=== PATIENT | male | born 1975 | race African-American/Black ===

== ENCOUNTER 2020-08-08 08:52 | Day surgery (SDC) | payer BC ==
[2020-08-05 14:27] VITALS: BMI 38.0
[~2020-08-08 08:52] MED LIST: ACETAMINOPHEN TAB 500 MG TAB PO PRN; DEXAMETHASONE SOD PHOSPHATE 4 MG/ML 1 ML VIAL IV ONE; HEPARIN SODIUM,PORCINE/PF 5,000 UNIT/0.5 ML SYRINGE SQ PRN; HYDROmorphone 0.5 MG/0.5 ML SYRINGE IVP PRN; MIDAZOLAM 2 MG/2 ML VIAL IV PRN; ONDANSETRON 4 MG/2 ML VIAL IVP ONE; SCOPOLAMINE 1.5MG/72HR PATCH TRANSDERM ONE; metroNIDAZOLE-NS PMX 500 MG in SALINE 1 100ML.BAG IVPB PRN
--- NOTE | 2020-08-08 09:15 | P.GSHP ---
History of Present Illness H&P Date: 08/08/20 Chief Complaint: Pilonidal cyst 45-year-old male for the last 5-6 years has had complaints of intermittent pain and swelling and drainage at the upper aspect of his gluteal cleft. Over the last year or so symptoms have occurred every few weeks. No previous incision and drainage. No antibiotic use in the past. Patient has drainage from the same location each time. Past Medical History Additional Past Medical History / Comment(s): PILONIDAL CYST-RUPTURED YESTERDAY History of Any Multi-Drug Resistant Organisms: None Reported Past Surgical History: Orthopedic Surgery Additional Past Surgical History / Comment(s): PINS IN BILAT HIPS AT AGE 16 Past Anesthesia/Blood Transfusion Reactions: No Reported Reaction Smoking Status: Current every day smoker - Past Family History Mother Family Medical History: No Reported History Medications and Allergies Home Medications Medication Instructions Recorded Confirmed Type No Known Home Medications 08/05/20 08/05/20 History Allergies Allergy/AdvReac Type Severity Reaction Status Date / Time No Known Allergies Allergy Verified 08/05/20 14:22 Surgical - Exam Physical exam: General: Well-developed, well-nourished HEENT: Normocephalic, sclerae nonicteric Abdomen: Nontender, nondistended Extremities: No edema, pilonidal region with a few small sinus openings, single open wound present at the superior aspect of the gluteal cleft measuring 5 x 5 mm with mild induration and minimal tenderness Neuro: Alert and oriented Assessment and Plan (1) Pilonidal cyst Narrative/Plan: Will proceed with pilonidal cystectomy at this time. At this time patient we plan for primary closure. Patient may require drain placement. Risks of bleed ing, infection, recurrence, wound formation, scarring, possible need for further surgery reviewed. He understands and wishes to proceed. Current Visit: Yes Status: Acute Code(s): L05.91 - PILONIDAL CYST WITHOUT ABSCESS SNOMED Code(s): 28794937
[2020-08-08 09:22] VITALS: RESP 16
[2020-08-08] MEDS: LACTATED RINGERS 1,000 ML IV SCH ×2 (09:31→10:28)
[2020-08-08] MEDS ORDERED: MIDAZOLAM 2 MG/2 ML VIAL ONE (10:30)
[2020-08-08] MEDS ORDERED: LIDOCAINE 1% INJ 10MG/ML (20 ML MDV) ONE (10:30)
[2020-08-08] MEDS ORDERED: HYDROmorphone (PF) 1 MG/ML ONE (10:30)
[2020-08-08] MEDS ORDERED: KETOROLAC 15 MG/ML 1 ML VIAL ONE (10:30)
[2020-08-08] MEDS ORDERED: fentaNYL (PF) 50 MCG/ML 2 ML AMP ONE (10:30)
[2020-08-08] MEDS ORDERED: PROPOFOL 10 MG/ML 20 ML VIAL IV ONE (10:30)
[2020-08-08] MEDS ORDERED: SUCCINYLCHOLINE CHLORIDE 100 MG/5 ML SYR IV ONE (10:30)
[2020-08-08] MEDS ORDERED: BUPIVACAINE (PF) 0.5% 30 ML VIAL SQ ONE ×2 (10:58→11:33)
[2020-08-08] MEDS ORDERED: NALOXONE 0.4 MG/ML 1 ML VIAL IV PRN (11:51)
[2020-08-08 11:55] VITALS: TEMP 97.1
--- NOTE | 2020-08-08 11:56 | P.OP ---
Date of Procedure: 08/08/20 Procedure(s) Performed: PREOPERATIVE DIAGNOSIS: Pilonidal cyst POSTOPERATIVE DIAGNOSIS: Same PROCEDURE: Pilonidal cystectomy SURGEON: Gucci LEGGETTL: Minimal ANESTHESIA: General COMPLICATIONS: None OPERATIVE PROCEDURE: Patient was placed prone on the operating table after general anesthesia was achieved. The gluteal crease was prepped and draped in usual sterile fashion after the patient was placed in the prone jackknife position. The patient had a single 5-6 mm wound at the apex of his gluteal crease. There was fairly significant induration around this area. There were 3 small skin openings within the gluteal crease approximately 7 cm inferior to that. Skin markings were used to delineate the anticipated excision site. [place] cleft lift technique was utilized. An elliptical incision was made to the right side of the buttock encompassing the medial aspect of the left buttock skin coming around just on the right side of the skin openings. Dissection through the subcutaneous tissues took place using electrocautery. The least amount of dissection took place that was required. No tunneling was seen in the periphery. Skin flap was raised to the left approximately 3-4 cm. The wound was then irrigated fully with saline. No bleeding was seen. The subcutaneous tissues were reapproximated using interrupted 2-0 Vicryl and 3-0 sutures. A 10 Spanish round drain was placed above the deeper closure layer. This exited from the left side and sutured to the skin using a 3-0 silk stitch. The dermal layer was then reapproximated using interrupted 3-0 Vicryl sutures. The skin was then closed using a running 3-0 Monocryl suture. The incision was off the midline to the right by a distance of approximately 1cm. Marcaine solution plain was utilized as local anesthesia. Skin glue was used along the length of the skin closure. A sterile dressing was applied at that time. DISPOSITION: Stable to recovery room
[2020-08-08 13:05] VITALS: BP 124/84; PULSE 70
== END 2020-08-08 13:55 | disposition home or self-care (01) ==
LOC: OR 08:52
PROVIDERS: ATTEND Surgery
DX: L05.91 Pilonidal cyst without abscess (principal); K21.9 Gastro-esophageal reflux disease without esophagitis; E78.5 Hyperlipidemia, unspecified; F17.210 Nicotine dependence, cigarettes, uncomplicated; Z86.16 Personal history of COVID-19
CPT/HCPCS: 88304; 11770; J2250; J1100; J0690; J2405; J2001; J3010; J1170; J1885; J0330; J2704; J1644